=== PATIENT | female | born 1965 | race African-American/Black ===

== ENCOUNTER 2016-10-12 11:13 | Inpatient (IN) | payer OTHER ==
[2016-10-12 12:17] VITALS: BMI 25.7
--- NOTE | 2016-10-12 14:56 | HP ---
CIWA Score - CIWA Score Nausea/Vomitin Muscle Tremors: 5 Anxiety: 5 Agitation: 0-Normal Activity Paroxysmal Sweats: 3 Orientation: 0-Oriented Tacttile Disturbances: 1-Very Mild Itch/Numbness Auditory Disturbances: 0-None Visual Disturbances: 0-None Headache: 0-None Present CIWA-Ar Total Score: 17 Admission ROS BHS - HPI Chief Complaint: Things are getting worse I need help to stop alchol dep. Allergies/Adverse Reactions: Allergies Allergy/AdvReac Type Severity Reaction Status Date / Time No Known Allergies Allergy Verified 10/12/16 14:23 History of Present Illness: 51y/o f pt with h/o chronic alcoholism seeking detox Exam Limitations: No Limitations - Ebola screening Have you traveled outside of the country in the last 21 days: No Have you had contact with anyone from an Ebola affected area: No Have you been sick,other than usual withdrawal symptoms: No Do you have a fever: No - Review of Systems Constitutional: Loss of Appetite, Malaise, Changes in sleep, Unintentional Wgt. Loss (30 lbs x 4 months) EENT: reports: Blurred Vision Respiratory: reports: No Symptoms reported Cardiac: reports: No Symptoms Reported GI: reports: Nausea : reports: No Symptoms Reported Musculoskeletal: reports: No Symptoms Reported Integumentary: reports: No Symptoms Reported Neuro: reports: Tremors Endocrine: reports: No Symptoms Reported Hematology: reports: Easy [place] Psychiatric: reports: Agitated, Anxious, Depressed Other Systems: Reviewed and Negative Patient History - Patient Medical History Hx Anemia: No Hx Asthma: No Hx Chronic Obstructive Pulmonary Disease (COPD): No Hx Cancer: No Hx Cardiac Disorders: No Hx Congestive Heart Failure: No Hx Hypertension: No Hx Hypercholesterolemia: No HX Cerebrovascular Accident: No Hx Seizures: No Hx Dementia: No Hx Diabetes: No Hx Gastrointestinal Disorders: No Hx Liver Disease: No Hx Genitourinary Disorders: No Hx Sexually Transmitted Disorders: No Hx Renal Disease (ESRD): No Hx Thyroid Disease: No Hx Human Immunodeficiency Virus (HIV): No Hx Hepatitis C: No Hx Depression: No (anxiety ) Hx Suicide Attempt: Yes Hx Bipolar Disorder: No Hx Schizophrenia: No - Patient Surgical History Hx Breast Surgery: Yes (benign tumor removed age 14) - PPD History Previous Implant?: Yes Documented Results: Negative w/o proof Implanted On Prior R Admission?: No PPD to be Administered?: Yes - Reproductive History Patient is a Female of Child Bearing Age (11 -55 yrs old): Yes Last Menstrual Period: 04/03/16 Patient : No - Smoking Cessation Smoking history: Never smoked Aproximately how many cigarettes per day: 0 Hx Chewing Tobacco Use: No Initiated information on smoking cessation: No 'Breaking Loose' booklet given: 10/12/16 - Substance & Tx. History Hx Alcohol Use: Yes Hx Substance Use: No Substance Use Type: Alcohol Hx Substance Use Treatment: Yes - Substances Abused Alcohol Route: Oral Frequency: Daily Amount used: vodka(1/5)/beer(5-6 24 oz cans Age of first use: 41 Date of Last Use: 10/11/16 Family Disease History - Family Disease History Family Disease History: CA: Father (prostate ca), Mother (alcohol dep , lung ca) , Other: Mother Admission Physical Exam [facility] - Vital Signs Vital Signs: Vital Signs - 24 hr 10/12/16 12:13 Temperature 96 F L Pulse Rate 111 H Respiratory 20 Rate Blood Pressure 141/88 51 y/o f pt wn/wd , extremely anxious, shaky but cooperating with exam. - Physical General Appearance: Yes: Appropriately Dressed, Anxious HEENTM: Yes: EOMI, Hearing grossly Normal, Normocephalic, Normal Voice, MARCO Respiratory: Yes: Chest Non-Tender, Lungs Clear, Normal Breath Sounds, No Respiratory Distress Neck: Yes: Supple, Trachea in good position Breast: Yes: Breast Exam Deferred Cardiology: Yes: Regular Rhythm, S1, S2, Tachycardia Abdominal: Yes: Non Tender, Flat, Soft, Increased Bowel Sounds Genitourinary: Yes: Within Normal Limits Back: Yes: Decreased Range of Motion Musculoskeletal: Yes: Back pain Extremities: Yes: Tremors Neurological: Yes: hansard reporter II-XII NML intact, Fully Oriented, Alert, Motor Strength 5/5, Normal Response, Finger to Nose, Depressed Affect Integumentary: Yes: Moist Lymphatic: Yes: Within Normal Limits - Diagnostic (1) Alcohol dependence with uncomplicated withdrawal Current Visit: Yes Status: Chronic (2) Anxiety Current Visit: Yes Status: Chronic (3) Weight loss Current Visit: Yes Status: Chronic Cleared for Admission [facility] - Detox or Rehab [facility] Level of Care: Medically Managed Detox Regimen/Protocol: Librium [facility] Breath Alcohol Content Breath Alcohol Content: 0 Urine Pregancy Test - Result Urine Test Results: Negative- NO Line Present Urine Drug Screen - Results Drug Screen Negative: No Urine Drug Screen Results: BZO-Benzodiazepines
[2016-10-12] MEDS ORDERED: MENTHOL/PHENOL 1 EACH UD MM PRN (15:13)
[2016-10-12] MEDS ORDERED: LOPERAMIDE HCL 2 MG CAPSULE PO PRN (15:13)
[2016-10-12] MEDS ORDERED: P-EPHED 60MG/TRIPROLIDI 2.5MG TABLET PO PRN (15:13)
[2016-10-12] MEDS ORDERED: MAGNESIUM CITRATE 300 ML BOTTLE PO PRN (15:13)
[2016-10-12] MEDS ORDERED: guaiFENesin/D-METHORPHAN HB 10 ML UNIT-DOSE CUPS PO PRN (15:13)
[2016-10-12] MEDS ORDERED: MAGNESIUM HYDROX 2400MG/30ML ORAL SUSPENSION 30 ML CUP PO PRN (15:13)
[2016-10-12] MEDS ORDERED: ACETAMINOPHEN 325 MG TABLET (FP) PO PRN (15:13)
[2016-10-12] MEDS ORDERED: MAG HYDROX/AL HYDROX/SIMETH 30 ML UNIT-DOSE CUP PO PRN (15:13)
[2016-10-12] MEDS ORDERED: diphenhydrAMINE HCL 50 MG CAPSULE PO PRN (15:13)
[2016-10-12] MEDS ORDERED: IBUPROFEN 400 MG TABLET (FP) PO PRN (15:13)
[2016-10-12] MEDS ORDERED: chlordiazePOXIDE HCL 25 MG CAPSULE PO ONE (15:22)
[2016-10-12] MEDS: chlordiazePOXIDE HCL 25 MG CAPSULE PO SCH ×2 (17:59→22:26)
[2016-10-12 20:09] LABS: URINE APPEARANCE CLEAR; URINE BILIRUBIN NEGATIVE (NEGATIVE); URINE COLOR YELLOW; URINE GLUCOSE (UA) NEGATIVE (NEGATIVE); URINE KETONE NEGATIVE (NEGATIVE); URINE NITRITE NEGATIVE (NEGATIVE); URINE PROTEIN NEGATIVE (NEGATIVE); URINE UROBILINOGEN NEGATIVE E.U./dl (0.2-1.0)
[2016-10-12 21:17] LABS: URINE BLOOD 2+ (NEGATIVE); URINE LEUK ESTERASE 3+ (NEGATIVE)
[2016-10-12] MEDS: THIAMINE HCL 100 MG TABLET (FP) PO SCH (22:26)
[2016-10-12 22:51] LABS: GRANULAR CASTS 3 /lpf; URINE MUCUS MANY; URINE RBC 14 /hpf (0-3); URINE WBC 52 /hpf (3-5)
[2016-10-13] MEDS: chlordiazePOXIDE HCL 25 MG CAPSULE PO SCH ×4 (06:23→22:23)
[2016-10-13 10:17] LABS: ALBUMIN 3.2 g/dl (3.4-5.0); ANION GAP 11 (8-16); CALCIUM 9.1 mg/dL (8.5-10.1); CO2 25 mmol/L (21-32); GLUCOSE,RANDOM 115 mg/dL (74-106)
[2016-10-13 10:19] LABS: MCH 24.3 pg (25.7-33.7); MCHC 31.7 g/dl (32.0-36.0); MEAN CELL VOLUME 76.8 fl (80-96); MEAN PLT VOLUME 8.1 fl (7.5-11.1); PLATELET COUNT 415 K/MM3 (134-434); RDW 23.5 % (11.6-15.6); WHITE BLOOD COUNT 5.7 K/mm3 (4.0-10.0)
[2016-10-13 10:22] LABS: ALK PHOS 72 U/L (45-117); BILIRUBIN,TOTAL 0.5 mg/dL (0.2-1.0); CREATININE 0.9 mg/dL (0.55-1.02); SGOT/AST 28 U/L (15-37); SGPT/ALT 20 U/L (12-78); TOT PROT 6.7 g/dl (6.4-8.2)
[2016-10-13] MEDS: PRENATAL VITAMINS W/ FOLIC ACID TABLET (FP) PO SCH (11:06)
[2016-10-13 11:55] LABS: ANISOCYTOSIS 1+; MICROCYTOSIS 1+; PLATELET ESTIMATE INCREASED (NORMAL)
--- NOTE | 2016-10-13 11:59 | PN ---
S CIWA - CIWA Score Nausea/Vomitin-No Nausea/No Vomiting Muscle Tremors: 4-Moderate,w/Arms Extend Anxiety: 4-Mod. Anxious/Guarded Agitation: 4-Moderately Restless Paroxysmal Sweats: 3 Orientation: 0-Oriented Tacttile Disturbances: 0-None Auditory Disturbances: 0-None Visual Disturbances: 0-None Headache: 1-Very Mild CIWA-Ar Total Score: 16 BHS Progress Note (SOAP) Subjective: shakes sweats body aches interrupted sleep Objective: 10/13/16 11:58 Vital Signs Temperature 96.6 F L 10/13/16 11:03 Pulse Rate 105 H 10/13/16 11:03 Respiratory Rate 18 10/13/16 11:03 Blood Pressure 133/89 10/13/16 11:03 O2 Sat by Pulse Oximetry (%) Laboratory Tests 10/12/16 10/13/16 10/13/16 14:00 06:00 06:00 WBC 5.7 RBC 4.15 Hgb 10.1 L Hct 31.9 L MCV 76.8 L MCHC 31.7 L RDW 23.5 H Plt Count 415 MPV 8.1 Platelet Estimate Increased Platelet Comment No clumping noted Anisocytosis 1+ Microcytosis 1+ Sodium 141 Potassium 4.1 Chloride 105 Carbon Dioxide 25 Anion Gap 11 BUN 8 Creatinine 0.9 Creat Clearance w eGFR > 60 Random Glucose 115 H Calcium 9.1 Total Bilirubin 0.5 AST 28 ALT 20 Alkaline Phosphatase 72 Total Protein 6.7 Albumin 3.2 L Urine Color Yellow Urine Appearance Clear Urine pH 5.0 Ur Specific [place] 1.018 Urine Protein Negative Urine Glucose (UA) Negative Urine Ketones Negative Urine Blood 2+ H Urine Nitrite Negative Urine Bilirubin Negative Urine Urobilinogen Negative Ur Leukocyte Esterase 3+ H Urine RBC 14 Urine WBC 52 Ur Epithelial Cells Rare Granular Casts 3 Urine Mucus Many awake/alert ambulating no acute distress repeat u/a Assessment: 10/13/16 11:58 withdrawal sx Plan: continue detox increase fluids f/u pending labs
[2016-10-13] MEDS: GABAPENTIN 300 MG CAPSULE (FP) PO SCH ×2 (12:43→22:23)
[2016-10-13] MEDS: chlordiazePOXIDE HCL 25 MG CAPSULE PO PRN (13:00)
--- NOTE | 2016-10-13 13:47 | EKG ---
Test Reason : Blood Pressure : / mmHG Vent. Rate : 104 BPM Atrial Rate : 104 BPM P-R Int : 154 ms QRS Dur : 080 ms QT Int : 350 ms P-R-T Axes : 060 070 027 degrees QTc Int : 460 ms SINUS TACHYCARDIA NONSPECIFIC T WAVE ABNORMALITY ABNORMAL ECG NO PREVIOUS ECGS AVAILABLE Confirmed by KRISTA KING MD ([id number]) on 10/13/2016 1:46:48 PM Referred By: Confirmed By:KRISTA KING MD
--- NOTE | 2016-10-13 14:01 | CONSULT ---
[facility] Psychiatric Consult - Data Date of interview: 10/13/16 Admission source: [facility] Identifying data: First admission to [facility] for this 51 y/o AA female seeking detox treatment on for alcohol dependence.Patient is single,a mother of one,domiciled,unemployed and supported on [facility] benefits. Substance Abuse History: - Smoking Cessation. Smoking history: Never smoked. Aproximately how many cigarettes per day: 0. Hx Chewing Tobacco Use: No. Initiated information on smoking cessation: No. 'Breaking Loose' booklet given : 10/12/16. - Substance & Tx. History. Hx Alcohol Use: Yes. Hx Substance Use : No. Substance Use Type: Alcohol. Hx Substance Use Treatment: Yes. - Substances Abused. Alcohol. Route: Oral. Frequency: Daily. Amount used: vodka(1/5)/beer(5-6 24 oz cans. Age of first use: 41. Date of Last Use: . Confirmed by patient. Medical History: Patient endorses good general health.Noted history of excision of a benign ovarian tumor (age 14). Psychiatric History: History of two psychiatric [facility] at [facility] [facility] in [facility].Diagnosed with SHAKIRA/PTSD.Ms Quinonez gets her psychiatric outpatient services at [facility] in [facility].Prescribed zoloft 150 mg/day + buspar 15 mg po bid + gabapentin 300 mg po bid + trazodone 50 mg/hs.Last took these medications two weeks ago (self-report).Patient denies history of suicide attempts. Physical/Sexual Abuse/Trauma History: No reported history of suicide attempts.Patient indicates,however,that she has lost a friend in the tragedy of the [employer] in 2000.Deeply traumatized by that loss. Additional Comment: Urine Drug Screen Results: BZO-Benzodiazepines.Noted. Mental Status Exam - Mental Status Exam Alert and Oriented to: Time, Place, Person Cognitive Function: Good Patient Appearance: Well Groomed Mood: Sad, Nervous, Withdrawn, Anxious Affect: Mood Congruent, Constricted Patient Behavior: Fatigued, Appropriate, Cooperative Speech Pattern: Clear, Appropriate Voice Loudness: Normal Thought Process: Goal Oriented Thought Disorder: Not Present Hallucinations: Denies Suicidal Ideation: Denies Homicidal Ideation: Denies Insight/Judgement: Fair Sleep: Poorly, Difficulty falling asleep Appetite: Fair Muscle strength/Tone: Normal Gait/Station: Normal Psychiatric Findings - Problem List ([place] 1, 2,3) (1) Alcohol dependence with uncomplicated withdrawal Current Visit: Yes Status: Acute (2) SHAKIRA (generalized anxiety disorder) Current Visit: Yes Status: Chronic (3) Post traumatic stress disorder (PTSD) Current Visit: Yes Status: Chronic Comment: Self-report. (4) Insomnia Current Visit: Yes Status: Acute - Initial Treatment Plan Initial Treatment Plan: Psychoeducation.Detoxification.Medications as per listing in the Psychiatric History section (see details).Side effects/benefits of each drug are discussed with the patient.She is in agreement with this plan of care.Observation.Patient declines to get scripts at discharge (refills already available from [facility] provider).
[2016-10-13 16:58] LABS: URINE APPEARANCE SLCLOUDY; URINE BILIRUBIN NEGATIVE (NEGATIVE); URINE COLOR YELLOW; URINE GLUCOSE (UA) NEGATIVE (NEGATIVE); URINE KETONE NEGATIVE (NEGATIVE); URINE NITRITE NEGATIVE (NEGATIVE); URINE PROTEIN NEGATIVE (NEGATIVE); URINE UROBILINOGEN NEGATIVE E.U./dl (0.2-1.0)
[2016-10-13 17:17] LABS: URINE BLOOD 2+ (NEGATIVE); URINE LEUK ESTERASE 3+ (NEGATIVE)
[2016-10-13 21:32] LABS: URINE MUCUS RARE; URINE RBC 12 /hpf (0-3); URINE WBC 212 /hpf (3-5)
[2016-10-13] MEDS: THIAMINE HCL 100 MG TABLET (FP) PO SCH (22:23)
[2016-10-13] MEDS: traZODone HCL 50 MG TABLET (FP) PO SCH (23:08)
[2016-10-14] MEDS: chlordiazePOXIDE HCL 25 MG CAPSULE PO SCH ×2 (05:50→10:52)
[2016-10-14] MEDS: PRENATAL VITAMINS W/ FOLIC ACID TABLET (FP) PO SCH (10:52)
[2016-10-14] MEDS: GABAPENTIN 300 MG CAPSULE (FP) PO SCH ×2 (10:52→23:08)
[2016-10-14] MEDS: SERTRALINE HCL 50 MG TABLET (FP) PO SCH (10:52)
--- NOTE | 2016-10-14 13:41 | PN ---
[facility] CIWA - CIWA Score Nausea/Vomitin Muscle Tremors: 3 Anxiety: 3 Agitation: 2 Paroxysmal Sweats: 1-Minimal Palms Moist Orientation: 0-Oriented Tacttile Disturbances: 1-Very Mild Itch/Numbness Auditory Disturbances: 1-Very Mild Visual Disturbances: 1-Very Mild Sensitivity Headache: 2-Mild CIWA-Ar Total Score: 17 BHS Progress Note (SOAP) Subjective: ALERT,IRRITABLE,ANXIOUS,INTERRUPTED SLEEP,TREMOR Objective: 10/14/16 13:38 Vital Signs Temperature 97.7 F 10/14/16 11:12 Pulse Rate 109 H 10/14/16 11:12 Respiratory Rate 18 10/14/16 11:12 Blood Pressure 110/77 10/14/16 11:12 O2 Sat by Pulse Oximetry (%) EKG SINUS TACHYCARDIA NO CHEST PAIN,NO SOB,NO DIZZINESS Laboratory Last Values WBC 5.7 K/mm3 (4.0-10.0) 10/13/16 06:00 RBC 4.15 M/mm3 (3.60-5.2) 10/13/16 06:00 Hgb 10.1 GM/dL (10.7-15.3) L 10/13/16 06:00 Hct 31.9 % (32.4-45.2) L 10/13/16 06:00 MCV 76.8 fl (80-96) L 10/13/16 06:00 MCHC 31.7 g/dl (32.0-36.0) L 10/13/16 06:00 RDW 23.5 % (11.6-15.6) H 10/13/16 06:00 Plt Count 415 K/MM3 (134-434) 10/13/16 06:00 MPV 8.1 fl (7.5-11.1) 10/13/16 06:00 Platelet Estimate Increased (NORMAL) 10/13/16 06:00 Platelet Comment No clumping noted 10/13/16 06:00 Anisocytosis 1+ 10/13/16 06:00 Microcytosis 1+ 10/13/16 06:00 Sodium 141 mmol/L (136-145) 10/13/16 06:00 Potassium 4.1 mmol/L (3.5-5.1) 10/13/16 06:00 Chloride 105 mmol/L (98-107) 10/13/16 06:00 Carbon Dioxide 25 mmol/L (21-32) 10/13/16 06:00 Anion Gap 11 (8-16) 10/13/16 06:00 BUN 8 mg/dL (7-18) 10/13/16 06:00 Creatinine 0.9 mg/dL (0.55-1.02) 10/13/16 06:00 Creat Clearance w eGFR > 60 (>60) 10/13/16 06:00 Random Glucose 115 mg/dL (74-106) H 10/13/16 06:00 Calcium 9.1 mg/dL (8.5-10.1) 10/13/16 06:00 Total Bilirubin 0.5 mg/dL (0.2-1.0) 10/13/16 06:00 AST 28 U/L (15-37) 10/13/16 06:00 ALT 20 U/L (12-78) 10/13/16 06:00 Alkaline Phosphatase 72 U/L (45-117) 10/13/16 06:00 Total Protein 6.7 g/dl (6.4-8.2) 10/13/16 06:00 Albumin 3.2 g/dl (3.4-5.0) L 10/13/16 06:00 Urine Color Yellow 10/13/16 13:00 Urine Appearance Slcloudy 10/13/16 13:00 Urine pH 7.0 (5.0-8.0) D 10/13/16 13:00 Ur Specific [place] 1.013 (1.001-1.035) 10/13/16 13:00 Urine Protein Negative (NEGATIVE) 10/13/16 13:00 Urine Glucose (UA) Negative (NEGATIVE) 10/13/16 13:00 Urine Ketones Negative (NEGATIVE) 10/13/16 13:00 Urine Blood 2+ (NEGATIVE) H 10/13/16 13:00 Urine Nitrite Negative (NEGATIVE) 10/13/16 13:00 Urine Bilirubin Negative (NEGATIVE) 10/13/16 13:00 Urine Urobilinogen Negative E.U./dl (0.2-1.0) 10/13/16 13:00 Ur Leukocyte Esterase 3+ (NEGATIVE) H 10/13/16 13:00 Urine RBC 12 /hpf (0-3) 10/13/16 13:00 Urine WBC 212 /hpf (3-5) 10/13/16 13:00 Ur Epithelial Cells Many /hpf (FEW) 10/13/16 13:00 Granular Casts 3 /lpf 10/12/16 14:00 Urine Mucus Rare 10/13/16 13:00 RPR Titer Nonreactive (NONREACTIVE) 10/13/16 06:00 Assessment: 10/14/16 13:39 WITHDRAWAL SYMPTOM,URINE FOR C/S,BACTRIM DS 1 TAB PO BID FOR UTI
[2016-10-14] MEDS: SULFAMETHOXAZOLE/TRIMETHOPRIM 800MG/160MG D.S. TABLET PO SCH ×2 (14:35→23:08)
[2016-10-14] MEDS: chlordiazePOXIDE HCL 25 MG CAPSULE PO PRN (15:18)
[2016-10-14] MEDS: chlordiazePOXIDE 5 MG CAPSULE PO SCH ×2 (17:44→23:08)
[2016-10-14] MEDS: traZODone HCL 50 MG TABLET (FP) PO SCH (23:08)
[2016-10-14] MEDS: THIAMINE HCL 100 MG TABLET (FP) PO SCH (23:09)
[2016-10-15] MEDS: chlordiazePOXIDE 5 MG CAPSULE PO SCH ×2 (06:17→10:44)
[2016-10-15] MEDS: PRENATAL VITAMINS W/ FOLIC ACID TABLET (FP) PO SCH (10:44)
[2016-10-15] MEDS: GABAPENTIN 300 MG CAPSULE (FP) PO SCH ×2 (10:45→22:27)
[2016-10-15] MEDS: SULFAMETHOXAZOLE/TRIMETHOPRIM 800MG/160MG D.S. TABLET PO SCH ×2 (10:45→22:27)
[2016-10-15] MEDS: SERTRALINE HCL 50 MG TABLET (FP) PO SCH (10:45)
--- NOTE | 2016-10-15 14:25 | PN ---
S Progress Note (SOAP) Subjective: ALERT,IRRITABLE,ANXIOUS,INTERRUPTED SLEEP Objective: 10/15/16 14:23 Vital Signs Temperature 97.6 F 10/15/16 14:22 Pulse Rate 76 10/15/16 14:22 Respiratory Rate 20 10/15/16 14:22 Blood Pressure 100/66 10/15/16 14:22 O2 Sat by Pulse Oximetry (%) 10/15/16 14:23 URINE FOR C/S PENDING Assessment: 10/15/16 14:24 WITHDRAWAL SYMPTOM Plan: CONTINUE DETOX,URINE FOR C/S PENDING,CONTINUE DETOX,DISCHARGE IN AM
[2016-10-15] MEDS: chlordiazePOXIDE HCL 10 MG CAPSULE PO SCH ×2 (16:43→22:27)
[2016-10-15] MEDS: traZODone HCL 50 MG TABLET (FP) PO SCH (22:27)
[2016-10-15] MEDS: THIAMINE HCL 100 MG TABLET (FP) PO SCH (22:27)
[2016-10-16] MEDS: chlordiazePOXIDE HCL 10 MG CAPSULE PO SCH (05:48)
--- NOTE | 2016-10-16 08:21 | DS ---
[facility] Detox Discharge Summary Admission Date: 10/12/16 Discharge Date: 10/16/16 - History Present History: Alcohol Dependence - Physical Exam Results Vital Signs: Vital Signs Temperature 97.7 F 10/16/16 06:00 Pulse Rate 87 10/16/16 06:00 Respiratory Rate 18 10/16/16 06:00 Blood Pressure 116/73 10/16/16 06:00 O2 Sat by Pulse Oximetry (%) - Treatment Hospital Course: Detox Protocol Followed, Detoxed Safely, Responded well, Discharged Condition Good, Rehab Referral Accepted - Medication Discharge Medications: Ambulatory Orders Buspirone HCl [Buspar -] 15 mg PO BID 10/12/16 Gabapentin [Neurontin -] 300 mg PO BID 10/12/16 Sertraline HCl [Zoloft -] 150 mg PO DAILY 10/12/16 Trazodone HCl 50 mg PO HS 10/12/16 - Diagnosis (1) Alcohol dependence with uncomplicated withdrawal Current Visit: Yes Status: Chronic (2) Insomnia Current Visit: Yes Status: Acute (3) Anxiety Current Visit: Yes Status: Chronic (4) SHAKIRA (generalized anxiety disorder) Current Visit: Yes Status: Chronic (5) Post traumatic stress disorder (PTSD) Current Visit: Yes Status: Chronic (6) Weight loss Current Visit: Yes Status: Chronic - AMA Did Patient Leave Against Medical Advice: No
[2016-10-16] MEDS: PRENATAL VITAMINS W/ FOLIC ACID TABLET (FP) PO SCH (09:24)
[2016-10-16] MEDS: GABAPENTIN 300 MG CAPSULE (FP) PO SCH (09:25)
[2016-10-16] MEDS: SERTRALINE HCL 50 MG TABLET (FP) PO SCH (09:25)
[2016-10-16] MEDS: SULFAMETHOXAZOLE/TRIMETHOPRIM 800MG/160MG D.S. TABLET PO SCH (09:25)
[2016-10-16 10:41] VITALS: BP 111/75; PULSE 98; TEMP 98
== END 2016-10-16 09:30 | disposition home or self-care (01) | DRG 897 ==
LOC: YASAS 11:13 → Y6N 14:58
PROVIDERS: ADMIT Internal Medicine Addiction Medicine; ATTEND Internal Medicine Addiction Medicine
PROC: HZ2ZZZZ Detoxification Services for Substance Abuse Treatment (ICD-10-PCS; principal; 2016-10-16)
DX: F10.230 Alcohol dependence with withdrawal, uncomplicated (principal); F41.1 Generalized anxiety disorder; F41.9 Anxiety disorder, unspecified; G47.00 Insomnia, unspecified; R63.4 Abnormal weight loss; Z68.25 Body mass index [BMI] 25.0-25.9, adult
CPT/HCPCS: 36415; 80053; 81003; 81015; 85027; 86593; 87086; 93005; 93010

== ENCOUNTER 2019-07-29 09:22 | Inpatient (IN) | payer OTHER ==
--- NOTE | 2019-07-29 09:53 | HP ---
CIWA Score Nausea/Vomitin-Int. Nausea w/Dry Heave Muscle Tremors: 2 Anxiety: 3 Agitation: 1-Slight > Activity Paroxysmal Sweats: 1-Minimal Palms Moist Orientation: 0-Oriented Tacttile Disturbances: 0-None Auditory Disturbances: 0-None Visual Disturbances: 0-None Headache: 2-Mild CIWA-Ar Total Score: 13 - Admission Criteria [facility]ASAS Guidelines: Admission for Medically Managed Detox: Requires at least one of the followin. CIWA greater than 12 2. Seizures within the past 24 hours 3. Delirium tremens within the past 24 hours 4. Hallucinations within the past 24 hours 5. Acute intervention needed for co occurring medical disorder 6. Acute intervention needed for co occurring psychiatric disorder 7. Severe withdrawal that cannot be handled at a lower level of care (continued vomiting, continued diarrhea, abnormal vital signs) requiring intravenous medication and/or fluids 8. Admitting History and Physical - Admission Chief Complaint: Ms. Quinonez presents to [facility] requesting admission to detox for alcohol use disorder. She is a 54 yo woman. History of Present Illness: Ms. Quinonez presents to [facility] requesting admission to detox for alcohol use disorder. She is a 54 yo woman. She was last here in 2016. She was last in detox in May at [facility] in [place]. She has a hospital band on the right wrist with 07/28 date. She thinks she was at [facility] yesterday. PMH: HTN, HLD, no meds in one month Psych: anxiety, PTSD, ? bipolar. Followed by Dr. Hayden Kevin. On Gabapentin, Effexor, [place], Trazodone and naltrexone. No meds since May. Substance use history Alcohol: started age 13 y , last drink on drive to [facility], 1 pint Vodka daily. Relapsed 2 weeks ago. Has an eye reject opener and filler. No withdrawal seizure but pt not sure. Only drinks at home so, unsure about black outs. Denies: all other substances - Past Medical History ...LMP: 04/03/16 - Smoking History Smoking history: Never smoked Aproximately how many cigarettes per day: 0 - Alcohol/Substance Use Hx Alcohol Use: Yes Admission ROS S - HPI Allergies/Adverse Reactions: Allergies Allergy/AdvReac Type Severity Reaction Status Date / Time apple Allergy Severe Difficulty Verified 07/29/19 10:10 Breathing banana Allergy Severe Difficulty Verified 07/29/19 10:10 Breathing nut - unspecified Allergy Severe Difficulty Verified 07/29/19 10:10 Breathing pear Allergy Severe Difficulty Verified 07/29/19 10:10 Breathing watermelon Allergy Severe Difficulty Verified 07/29/19 10:10 Breathing Exam Limitations: No Limitations - Ebola screening Have you traveled outside of the country in the last 21 days: No Have you had contact with anyone from an Ebola affected area: No Do you have a fever: No - Review of Systems Constitutional: No Symptoms Reported EENT: reports: No Symptoms Reported Respiratory: reports: No Symptoms reported Cardiac: reports: No Symptoms Reported GI: reports: Vomiting : reports: No Symptoms Reported Musculoskeletal: reports: No Symptoms Reported Integumentary: reports: No Symptoms Reported Neuro: reports: Headache Endocrine: reports: No Symptoms Reported Hematology: reports: No Symptoms Reported Psychiatric: reports: Anxious, other (PTSD, ?bipolar) Patient History - Patient Medical History Hx Anemia: No Hx Asthma: No Hx Chronic Obstructive Pulmonary Disease (COPD): No Hx Cancer: No Hx Cardiac Disorders: No Hx Congestive Heart Failure: No Hx Hypertension: No Hx Hypercholesterolemia: No HX Cerebrovascular Accident: No Hx Seizures: No Hx Dementia: No Hx Diabetes: No Hx Gastrointestinal Disorders: No Hx Liver Disease: No Hx Genitourinary Disorders: No Hx Sexually Transmitted Disorders: No Hx Renal Disease (ESRD): No Hx Thyroid Disease: No Hx Human Immunodeficiency Virus (HIV): No Hx Hepatitis C: No Hx Depression: No (anxiety ) Hx Suicide Attempt: Yes Hx Bipolar Disorder: No Hx Schizophrenia: No - Patient Surgical History Hx Breast Surgery: Yes (benign tumor removed age 14) - PPD History Date: 10/14/16 - Reproductive History Last Menstrual Period: 04/03/16 - Smoking Cessation Smoking history: Never smoked Aproximately how many cigarettes per day: 0 Hx Chewing Tobacco Use: No Admission Physical Exam BHS - Physical General Appearance: Yes: Mild Distress, Alcohol on Breath, Anxious HEENTM: Yes: Hearing grossly Normal, Normocephalic, Normal Voice Respiratory: Yes: Lungs Clear, Normal Breath Sounds Neck: Yes: Within Normal Limits Breast: Yes: Breast Exam Deferred Cardiology: Yes: Regular Rate, Tachycardia Back: Yes: Normal Inspection Musculoskeletal: Yes: Within Normal Limits Extremities: Yes: Within Normal Limits, Other (Right wrist band from 07/28, pt thinks she was at [facility] for detox) Neurological: Yes: Fully Oriented, Alert - Diagnostic (1) Alcohol dependence with uncomplicated withdrawal Current Visit: No Status: Acute (2) Anxiety Current Visit: No Status: Acute (3) SHAKIRA (generalized anxiety disorder) Current Visit: No Status: Chronic (4) Post traumatic stress disorder (PTSD) Current Visit: No Status: Chronic Comment: Self-report. Cleared for Admission S - Detox or Rehab [facility] Level of Care: Medically Managed Inpatient Rehab Admission - Rehab Decision to Admit Inpatient rehab admission?: No
[2019-07-29] MEDS ORDERED: ACETAMINOPHEN 325 MG TABLET (FP) PO PRN ×2 (09:59)
[2019-07-29] MEDS ORDERED: chlordiazePOXIDE HCL 25 MG CAPSULE PO PRN (09:59)
[2019-07-29] MEDS ORDERED: MENTHOL/PHENOL 1 EACH UD MM PRN (09:59)
[2019-07-29] MEDS ORDERED: hydrOXYzine PAMOATE 25 MG CAPSULE (FP) PO PRN (09:59)
[2019-07-29] MEDS ORDERED: METHOCARBAMOL 500 MG TABLET PO PRN (09:59)
[2019-07-29] MEDS ORDERED: MELATONIN 5 MG TABLETS PO PRN (09:59)
[2019-07-29] MEDS ORDERED: BISMUTH SUBSALICYLATE 262 MG/15 ML BTL PO PRN (09:59)
[2019-07-29] MEDS ORDERED: MAGNESIUM HYDROX 2400MG/30ML ORAL SUSPENSION 30 ML CUP PO PRN (09:59)
[2019-07-29] MEDS ORDERED: MAG HYDROX/AL HYDROX/SIMETH 30 ML UNIT-DOSE CUP PO PRN (09:59)
[2019-07-29] MEDS ORDERED: IBUPROFEN 400 MG TABLET (FP) PO PRN (09:59)
[2019-07-29] MEDS ORDERED: MAGNESIUM CITRATE 300 ML BOTTLE PO PRN (09:59)
[2019-07-29 10:42] VITALS: BMI 34.0
[2019-07-29] MEDS: chlordiazePOXIDE HCL 25 MG CAPSULE PO SCH ×3 (12:22→22:11)
[2019-07-29] MEDS: PRENATAL VITAMINS W/ FOLIC ACID TABLET (FP) PO SCH (12:23)
--- NOTE | 2019-07-29 14:25 | CONSULT ---
[facility] Psychiatric Consult - Data Date of interview: 07/29/19 Admission source: [facility] Identifying data: Ms Quinonez is a 54 years old single Black female, mother of a 24 years old daughter, unemployed receiving SSD, domiciled seeking detox treatment for alcohol Substance Abuse History: Reports history of alcohol use. Refer to addiction counselor's summary for further information Medical History: PSignificant for hypertension, dyslipidemia and excision of a benign breast tumor (Left) (age 14). Psychiatric History: Patient is known for one previous admission to this facility in September 2016. Historical narrative remains consistent. She reports that her first psychiatric conctact occured in 1999 when she was diagnosed with General Anxiety Disorder, PTSD and started on Zoloft. Reports that she has been receiving psychiatric treatment since. Reports that she was recently diagnosed with Bipolar Disorder as well. She currently sees Hayden Kevin MD, a staff psychiatrist at the [facility] in [facility] and she is prescribed Effexor XR 150 mg/day, Gabapentin 600 mg/tid, [place] 900 mg/hs and Trazadone 50 mg/hs. Reports two psychiatric psychiatric hospitalizations at [facility] in 2013/2014. Told field underwriter that she was recently Denies previous suicide attempt. At present, denies experiencing psychotic, manic symptoms, S/H ideations. However, reports feeling depressed and sleeping poorly Physical/Sexual Abuse/Trauma History: Denies history of abuse as a child or DV relationshiop as an adult. However she indicates that she has lost a friend in the tragedy of the [place] in 2000. She said that that loss left her deeply traumatized Mental Status Exam - Mental Status Exam Alert and Oriented to: Time, Place, Person Cognitive Function: Fair Patient Appearance: Well Groomed Mood: Anxious Affect: Appropriate Patient Behavior: Cooperative Voice Loudness: Normal Thought Process: Intact, Goal Oriented Thought Disorder: Not Present Hallucinations: Denies Suicidal Ideation: Denies Homicidal Ideation: Denies Insight/Judgement: Poor Sleep: Poorly Appetite: Fair Muscle strength/Tone: Normal Gait/Station: Spastic Psychiatric Findings - Problem List ([place] 1, 2,3) (1) SHAKIRA (generalized anxiety disorder) Current Visit: No Status: Chronic (2) Post traumatic stress disorder (PTSD) Current Visit: No Status: Chronic Comment: Self-report. (3) Bipolar II disorder Current Visit: Yes Status: Chronic (4) Alcohol-induced mood disorder Current Visit: Yes Status: Acute (5) Alcohol-induced sleep disorder Current Visit: Yes Status: Acute (6) Alcohol dependence with uncomplicated withdrawal Current Visit: No Status: Acute - Initial Treatment Plan Initial Treatment Plan: 1) Continue Effexor XR 150 mg po daily, Gabapetin 600 mg po TID and Trazadone 50 mg po HS. 2) Continue inpatient detoxification
[2019-07-29] MEDS: GABAPENTIN 300 MG CAPSULE PO SCH ×2 (16:00→22:10)
[2019-07-29] MEDS: LITHIUM CARBONATE 450 MG TABLET.ER PO SCH (16:24)
[2019-07-29] MEDS: VENLAFAXINE HCL 75 MG E.R. CAPSULES PO SCH (16:24)
[2019-07-29 20:23] LABS: ALBUMIN 3.5 g/dl (3.4-5.0); BILIRUBIN,TOTAL 0.2 mg/dL (0.2-1); BLOOD UREA NITROGEN 15.6 mg/dL (7-18); POTASSIUM 3.9 mmol/L (3.5-5.1); TOT PROT 7.8 g/dl (6.4-8.2)
[2019-07-29 20:25] LABS: HEMATOCRIT 42.4 % (32.4-45.2); HEMOGLOBIN 14.1 GM/dL (10.7-15.3); MCH 30.6 pg (25.7-33.7); MCHC 33.3 g/dl (32.0-36.0); MEAN CELL VOLUME 91.9 fl (80-96); MEAN PLT VOLUME 7.9 fl (7.5-11.1); PLATELET COUNT 356 K/MM3 (134-434); RBC 4.61 M/mm3 (3.60-5.2); RDW 15.8 % (11.6-15.6); WHITE BLOOD COUNT 7.7 K/mm3 (4.0-10.0)
[2019-07-29] MEDS: THIAMINE HCL 100 MG TABLET (FP) PO SCH (22:11)
[2019-07-29] MEDS: traZODone HCL 50 MG TABLET (FP) PO SCH (22:11)
[2019-07-30] MEDS: GABAPENTIN 300 MG CAPSULE PO SCH ×3 (06:01→22:48)
[2019-07-30] MEDS: chlordiazePOXIDE HCL 25 MG CAPSULE PO SCH ×4 (06:01→22:48)
[2019-07-30] MEDS: VENLAFAXINE HCL 75 MG E.R. CAPSULES PO SCH (10:42)
[2019-07-30] MEDS: LITHIUM CARBONATE 450 MG TABLET.ER PO SCH (10:42)
[2019-07-30] MEDS: PRENATAL VITAMINS W/ FOLIC ACID TABLET (FP) PO SCH (10:43)
--- NOTE | 2019-07-30 11:33 | PN ---
[facility] CIWA - CIWA Score Nausea/Vomitin-No Nausea/No Vomiting Muscle Tremors: 3 Anxiety: 3 Agitation: 2 Paroxysmal Sweats: 2 Orientation: 0-Oriented Tacttile Disturbances: 0-None Auditory Disturbances: 0-None Visual Disturbances: 0-None Headache: 0-None Present CIWA-Ar Total Score: 10 S Progress Note (SOAP) Subjective: sweats shakes interrupted sleep anxiety Objective: 07/30/19 11:32 Vital Signs Temperature 97.7 F 07/30/19 07:11 Pulse Rate 101 H 07/30/19 07:11 Respiratory Rate 18 07/30/19 07:11 Blood Pressure 139/84 07/30/19 07:11 O2 Sat by Pulse Oximetry (%) Laboratory Tests 07/29/19 07/29/19 07/29/19 10:30 10:30 10:30 WBC 7.7 RBC 4.61 Hgb 14.1 Hct 42.4 D MCV 91.9 MCH 30.6 D MCHC 33.3 RDW 15.8 H D Plt Count 356 MPV 7.9 Sodium 141 Potassium 3.9 Chloride 107 Carbon Dioxide 26 Anion Gap 8 BUN 15.6 Creatinine 1.0 Est GFR (CKD-EPI)AfAm 72.93 Est GFR (CKD-EPI)NonAf 62.93 Random Glucose 86 Calcium 9.0 Total Bilirubin 0.2 AST 29 ALT 32 Alkaline Phosphatase 83 Total Protein 7.8 Albumin 3.5 POC Urine HCG, Qual RPR Titer Nonreactive HIV 1&2 Antibody Screen HIV P24 Antigen 07/29/19 07/29/19 10:30 11:01 WBC RBC Hgb Hct MCV MCH MCHC RDW Plt Count MPV Sodium Potassium Chloride Carbon Dioxide Anion Gap BUN Creatinine Est GFR (CKD-EPI)AfAm Est GFR (CKD-EPI)NonAf Random Glucose Calcium Total Bilirubin AST ALT Alkaline Phosphatase Total Protein Albumin POC Urine HCG, Qual Negative RPR Titer HIV 1&2 Antibody Screen Cancelled HIV P24 Antigen Cancelled aaox3 ambulating no acute distress Assessment: 07/30/19 11:32 withdrawals Plan: continue detox increase fluids
[2019-07-30] MEDS: traZODone HCL 50 MG TABLET (FP) PO SCH (22:48)
[2019-07-30] MEDS: THIAMINE HCL 100 MG TABLET (FP) PO SCH (22:48)
[2019-07-31] MEDS: GABAPENTIN 300 MG CAPSULE PO SCH ×3 (06:36→22:23)
[2019-07-31] MEDS: chlordiazePOXIDE HCL 25 MG CAPSULE PO SCH ×4 (06:36→22:23)
[2019-07-31] MEDS: VENLAFAXINE HCL 75 MG E.R. CAPSULES PO SCH (11:31)
[2019-07-31] MEDS: LITHIUM CARBONATE 450 MG TABLET.ER PO SCH (11:32)
[2019-07-31] MEDS: PRENATAL VITAMINS W/ FOLIC ACID TABLET (FP) PO SCH (11:36)
--- NOTE | 2019-07-31 16:18 | PN ---
[facility] CIWA - CIWA Score Nausea/Vomitin Muscle Tremors: 2 Anxiety: 2 Agitation: 2 Paroxysmal Sweats: No Perspiration Orientation: 0-Oriented Tacttile Disturbances: 1-Very Mild Itch/Numbness Auditory Disturbances: 0-None Visual Disturbances: 0-None Headache: 1-Very Mild CIWA-Ar Total Score: 10 BHS Progress Note (SOAP) Subjective: alert,irritable,anxious,interrupted sleep,pain in the body Objective: 07/31/19 16:17 Vital Signs Temperature 97.0 F L 07/31/19 13:46 Pulse Rate 97 H 07/31/19 13:46 Respiratory Rate 17 07/31/19 13:46 Blood Pressure 127/78 07/31/19 13:46 O2 Sat by Pulse Oximetry (%) Assessment: 07/31/19 16:17 withdrawal symptom Plan: continue detox librium regimen
[2019-07-31] MEDS: THIAMINE HCL 100 MG TABLET (FP) PO SCH (22:23)
[2019-07-31] MEDS: traZODone HCL 50 MG TABLET (FP) PO SCH (22:23)
[2019-08-01] MEDS ORDERED: chlordiazePOXIDE HCL 10 MG CAPSULE PO PRN
[2019-08-01] MEDS: GABAPENTIN 300 MG CAPSULE PO SCH ×3 (06:25→22:24)
[2019-08-01] MEDS: chlordiazePOXIDE HCL 10 MG CAPSULE PO SCH ×4 (06:25→22:29)
[2019-08-01] MEDS: VENLAFAXINE HCL 75 MG E.R. CAPSULES PO SCH (10:48)
[2019-08-01] MEDS: LITHIUM CARBONATE 450 MG TABLET.ER PO SCH (10:49)
[2019-08-01] MEDS: PRENATAL VITAMINS W/ FOLIC ACID TABLET (FP) PO SCH (10:49)
--- NOTE | 2019-08-01 14:07 | PN ---
[facility] CIWA - CIWA Score Nausea/Vomitin-Mild Nausea/No Vomiting Muscle Tremors: 1-None Visible, but [place] Anxiety: 1-Mildly Anxious Agitation: 1-Slight > Activity Paroxysmal Sweats: No Perspiration Orientation: 0-Oriented Tacttile Disturbances: 0-None Auditory Disturbances: 0-None Visual Disturbances: 0-None Headache: 1-Very Mild CIWA-Ar Total Score: 5 S Progress Note (SOAP) Subjective: alert,irritable,interrupted sleep, Objective: 08/01/19 14:06 Vital Signs Temperature 97.3 F L 08/01/19 08:59 Pulse Rate 93 H 08/01/19 08:59 Respiratory Rate 18 08/01/19 08:59 Blood Pressure 129/85 08/01/19 08:59 O2 Sat by Pulse Oximetry (%) Assessment: 08/01/19 14:06 withdrawal symptom Plan: continue detox librium regimen,discharge in am
--- NOTE | 2019-08-01 14:12 | PN ---
[facility] Progress Note Note: addendum continue detox librium regimen,discharge 0n 08/03/2019
[2019-08-01] MEDS: THIAMINE HCL 100 MG TABLET (FP) PO SCH (22:25)
[2019-08-01] MEDS: traZODone HCL 50 MG TABLET (FP) PO SCH (22:26)
[2019-08-02] MEDS: chlordiazePOXIDE HCL 10 MG CAPSULE PO SCH ×2 (06:43→17:54)
[2019-08-02] MEDS: GABAPENTIN 300 MG CAPSULE PO SCH ×3 (06:43→22:30)
[2019-08-02] MEDS: LITHIUM CARBONATE 450 MG TABLET.ER PO SCH (10:32)
[2019-08-02] MEDS: PRENATAL VITAMINS W/ FOLIC ACID TABLET (FP) PO SCH (10:32)
[2019-08-02] MEDS: VENLAFAXINE HCL 75 MG E.R. CAPSULES PO SCH (10:33)
--- NOTE | 2019-08-02 13:10 | PN ---
[facility] CIWA - CIWA Score Nausea/Vomitin-Mild Nausea/No Vomiting Muscle Tremors: 1-None Visible, but [place] Anxiety: 1-Mildly Anxious Agitation: 1-Slight > Activity Paroxysmal Sweats: No Perspiration Orientation: 0-Oriented Tacttile Disturbances: 0-None Auditory Disturbances: 0-None Visual Disturbances: 0-None Headache: 0-None Present CIWA-Ar Total Score: 4 BHS Progress Note (SOAP) Subjective: pt feeling fine today, anticipate discharge tomorrow, pt has a PCP and provider Laboratory Tests 07/29/19 07/29/19 07/29/19 10:30 10:30 10:30 WBC 7.7 RBC 4.61 Hgb 14.1 Hct 42.4 D MCV 91.9 MCH 30.6 D MCHC 33.3 RDW 15.8 H D Plt Count 356 MPV 7.9 Sodium 141 Potassium 3.9 Chloride 107 Carbon Dioxide 26 Anion Gap 8 BUN 15.6 Creatinine 1.0 Est GFR (CKD-EPI)AfAm 72.93 Est GFR (CKD-EPI)NonAf 62.93 Random Glucose 86 Calcium 9.0 Total Bilirubin 0.2 AST 29 ALT 32 Alkaline Phosphatase 83 Total Protein 7.8 Albumin 3.5 POC Urine HCG, Qual RPR Titer Nonreactive HIV 1&2 Ag/Ab, 4th Gen HIV 1&2 Antibody Screen HIV P24 Antigen 07/29/19 07/29/19 07/29/19 10:30 10:30 11:01 WBC RBC Hgb Hct MCV MCH MCHC RDW Plt Count MPV Sodium Potassium Chloride Carbon Dioxide Anion Gap BUN Creatinine Est GFR (CKD-EPI)AfAm Est GFR (CKD-EPI)NonAf Random Glucose Calcium Total Bilirubin AST ALT Alkaline Phosphatase Total Protein Albumin POC Urine HCG, Qual Negative RPR Titer HIV 1&2 Ag/Ab, 4th Gen Non reactive HIV 1&2 Antibody Screen Cancelled HIV P24 Antigen Cancelled O: Vital Signs - 24 hr 08/01/19 08/01/19 08/01/19 13:25 16:57 20:27 Temperature 97.7 F 98.1 F 97.9 F Pulse Rate 111 H 95 H 87 Respiratory 18 17 18 Rate Blood Pressure 124/71 146/80 141/77 08/02/19 08/02/19 08/02/19 04:25 06:38 10:13 Temperature 97.3 F L 96.3 F L Pulse Rate 81 96 H Respiratory 18 18 18 Rate Blood Pressure 141/62 143/69 a/p AUD- continue detox protocol, d/c tomorrow-
[2019-08-02] MEDS: THIAMINE HCL 100 MG TABLET (FP) PO SCH (22:31)
[2019-08-02] MEDS: traZODone HCL 50 MG TABLET (FP) PO SCH (22:31)
[2019-08-02 23:44] VITALS: PULSE 85
[2019-08-03] MEDS ORDERED: chlordiazePOXIDE HCL 10 MG CAPSULE PO ONE (05:00)
[2019-08-03] MEDS: GABAPENTIN 300 MG CAPSULE PO SCH (06:49)
[2019-08-03 09:57] VITALS: BP 144/96; TEMP 97.5
[2019-08-03] MEDS: VENLAFAXINE HCL 75 MG E.R. CAPSULES PO SCH (10:03)
[2019-08-03] MEDS: LITHIUM CARBONATE 450 MG TABLET.ER PO SCH (10:03)
[2019-08-03] MEDS: PRENATAL VITAMINS W/ FOLIC ACID TABLET (FP) PO SCH (10:03)
--- NOTE | 2019-08-03 14:36 | DS ---
[facility] Detox Discharge Summary Admission Date: 07/29/19 Discharge Date: 08/03/19 - History Present History: Alcohol Dependence - Physical Exam Results Vital Signs: Vital Signs Temperature 97.5 F L 08/03/19 09:56 Pulse Rate 85 08/03/19 09:56 Respiratory Rate 18 08/03/19 09:56 Blood Pressure 144/96 08/03/19 09:56 O2 Sat by Pulse Oximetry (%) Laboratory Tests 07/29/19 07/29/19 07/29/19 10:30 10:30 10:30 WBC 7.7 RBC 4.61 Hgb 14.1 Hct 42.4 D MCV 91.9 MCH 30.6 D MCHC 33.3 RDW 15.8 H D Plt Count 356 MPV 7.9 Sodium 141 Potassium 3.9 Chloride 107 Carbon Dioxide 26 Anion Gap 8 BUN 15.6 Creatinine 1.0 Est GFR (CKD-EPI)AfAm 72.93 Est GFR (CKD-EPI)NonAf 62.93 Random Glucose 86 Calcium 9.0 Total Bilirubin 0.2 AST 29 ALT 32 Alkaline Phosphatase 83 Total Protein 7.8 Albumin 3.5 POC Urine HCG, Qual RPR Titer Nonreactive HIV 1&2 Ag/Ab, 4th Gen HIV 1&2 Antibody Screen HIV P24 Antigen 07/29/19 07/29/19 07/29/19 10:30 10:30 11:01 WBC RBC Hgb Hct MCV MCH MCHC RDW Plt Count MPV Sodium Potassium Chloride Carbon Dioxide Anion Gap BUN Creatinine Est GFR (CKD-EPI)AfAm Est GFR (CKD-EPI)NonAf Random Glucose Calcium Total Bilirubin AST ALT Alkaline Phosphatase Total Protein Albumin POC Urine HCG, Qual Negative RPR Titer HIV 1&2 Ag/Ab, 4th Gen Non reactive HIV 1&2 Antibody Screen Cancelled HIV P24 Antigen Cancelled ROS: denies chest pain, sob, dizziness, alcohol cravings, sweats and restlessness PE: alert and oriented x 3 skin warm and dry +perrla, eoms intact bl gi nt, nd ext full rom, no tremors amb ad christiano denies si/hi a/p: alcohol dependence stable for discharge - Treatment Hospital Course: Detox Protocol Followed, Detoxed Safely, Responded well, Discharged Condition Good - Medication Discharge Medications: Ambulatory Orders Gabapentin [Neurontin -] 600 mg PO TID 10/12/16 traZODone HCL [Trazodone HCl] 50 mg PO HS 10/12/16 Innovation Carbonate [Eskalith -] 900 mg PO DAILY 07/29/19 Venlafaxine HCl [Effexor -] 175 mg PO DAILY 07/29/19 - AMA Did Patient Leave Against Medical Advice: No
== END 2019-08-03 10:42 | disposition home or self-care (01) | DRG 897 ==
LOC: YASAS 09:22 → Y6N 10:49
PROVIDERS: ADMIT Allergy & Immunology; ATTEND Allergy & Immunology
PROC: HZ2ZZZZ Detoxification Services for Substance Abuse Treatment (ICD-10-PCS; principal; 2019-07-29)
DX: F10.230 Alcohol dependence with withdrawal, uncomplicated (principal); F31.81 Bipolar II disorder; F10.282 Alcohol dependence with alcohol-induced sleep disorder; F10.24 Alcohol dependence with alcohol-induced mood disorder; F41.1 Generalized anxiety disorder; F43.10 Post-traumatic stress disorder, unspecified; I10 Essential (primary) hypertension; E78.5 Hyperlipidemia, unspecified; Z91.018 Allergy to other foods
CPT/HCPCS: 36415; 80053; 81025; 85027; 86593; 87389